=== PATIENT | female | born 1955 | race Caucasian/White ===

== ENCOUNTER → 2017-11-04 | Outpatient (CLI) | payer OTHER ==
[~2017-11-04] MED LIST: ALBU6.7H INH; ALLE24TA PO; ASPI81TA23 PO; CALC1TAB87 PO; CEPH500C3 PO; CYAN1TAB24 PO; ESTR2TAB PO; FEXO1TAB97 PO; LEVO50TA4 PO; LORT5TAB PO; MULT1TAB46 PO; SYMB160A INH; SYNT25TA PO
--- NOTE | 2017-11-04 14:38 | RADRPT ---
EXAM DATE/TIME: 11/04/2017 13:03 [place] COMPARISON: No previous studies available for comparison. INDICATIONS : Pre op for oopherectomy. MEDICAL HISTORY : None. SURGICAL HISTORY : Hysterectomy. ENCOUNTER: Initial ACUITY: 1 day PAIN SCORE: 0/10 LOCATION: Bilateral chest FINDINGS: PA and lateral views of the chest demonstrate the lungs to be symmetrically aerated without evidence of mass, infiltrate or effusion. The cardiomediastinal contours are unremarkable. Osseous structure s are intact. CONCLUSION: No acute disease. Kt Chicas MD FACR on November 04, 2017 at 14:35 Board Certified Radiologist. This report was verified electronically.
--- NOTE | 2017-11-04 17:19 | EKG ---
Date Performed: 11/04/2017 Time Performed: 12:21:43 PTAGE: 62 years EKG: Sinus rhythm NORMAL ECG PREVIOUS TRACING : 08/10/2007 11.23 Since the previous tracing, no significant change noted DOCTOR: Ermias Whittington Interpretating Date/Time 11/04/2017 17:17:53
== END ==
LOC: CPRE 12:05
PROVIDERS: ATTEND Obstetrics & Gynecology
DX: Z01.810 Encounter for preprocedural cardiovascular examination (principal); Z01.811 Encounter for preprocedural respiratory examination; Z01.812 Encounter for preprocedural laboratory examination; Z01.818 Encounter for other preprocedural examination; N83.202 Unspecified ovarian cyst, left side
CPT/HCPCS: 71046; 93005

== ENCOUNTER 2017-11-16 09:49 | Observation (INO) | payer OTHER ==
[~2017-11-16] VITALS: Ht 154.9 cm; Wt 66.9 kg
[~2017-11-16 09:49] MED LIST changes: -ALLE24TA PO; -CEPH500C3 PO; -LORT5TAB PO; -SYNT25TA PO
[2017-11-16] MEDS ORDERED: INSULIN HUMAN REGULAR 1,000 UNITS/10 ML VIAL SQ PRN (10:45)
[2017-11-16] MEDS ORDERED: CHLORHEXIDINE GLUCONATE 2 % 1 PACK (2 CLOTHS) TOPICAL PRN (10:45)
[2017-11-16] MEDS ORDERED: LACTATED RINGER'S 1000 ML IV PRN (10:45)
[2017-11-16] MEDS ORDERED: METOPROLOL TARTRATE 25 MG TAB PO PRN (10:45)
[2017-11-16] MEDS ORDERED: POVIDONE IODINE 5% (ANTISEPSIS KIT) 4 APPLICATIONS EACH NARE PRN (10:45)
[2017-11-16] MEDS ORDERED: SODIUM CHLORID 0.9% 500 ML IV PRN (10:45)
[2017-11-16] MEDS ORDERED: ONDANSETRON ODT 4 MG TAB ONE (10:58)
[2017-11-16] MEDS ORDERED: APREPITANT 40 MG CAP ONE (11:00)
[2017-11-16] MEDS ORDERED: ACETAMINOPHEN 1000 MG/100 ML 100 ML IV ONE (11:56)
[2017-11-16] MEDS ORDERED: BUPIVACAINE LIPOSOME PF 1.3% 20 ML VIAL ONE (11:56)
[2017-11-16] MEDS ORDERED: DEXMEDETOMIDINE HCL 200 MCG/2 ML VIAL ONE (11:56)
[2017-11-16] MEDS ORDERED: PROPOFOL 500 MG/50 ML INJ 50 ML ONE ×4 (11:57→14:43)
[2017-11-16] MEDS ORDERED: DEXAMETHASONE SOD PHOS 4 MG/ML VIAL IV ONE (12:00)
[2017-11-16] MEDS ORDERED: ROCURONIUM INJ 50 MG/5 ML SYRINGE IV PUSH ONE (12:00)
[2017-11-16] MEDS ORDERED: hydrALAZINE HCL 20 MG/ML VIAL IV ONE (12:00)
[2017-11-16] MEDS ORDERED: SODIUM CHLORIDE 0.9% 10 ML VIAL IV ONE (12:00)
[2017-11-16] MEDS ORDERED: LIDOCAINE HCL 1% PF 5 ML SYRINGE OTHER ONE (12:00)
[2017-11-16] MEDS ORDERED: LABETALOL HCL 100 MG/20 ML VIAL IV ONE (12:00)
[2017-11-16] MEDS ORDERED: LACTATED RINGER'S 1000 ML INJ 1,000 ML IV ONE (12:00)
[2017-11-16] MEDS ORDERED: PROPOFOL 200 MG/20 ML AMP IV ONE (12:00)
[2017-11-16 12:04] LABS: BICARBONATE 29.3 MEQ/L (21.0-32.0); CALCIUM 8.8 MG/DL (8.5-10.1); CREATININE 0.56 MG/DL (0.50-1.00)
[2017-11-16] MEDS ORDERED: METHYLENE BLUE 10 MG/ML VIAL IV ONE (15:05)
[2017-11-16] MEDS ORDERED: MIDAZOLAM HCL 2 MG/2 ML VIAL ONE (15:48)
[2017-11-16] MEDS ORDERED: *morphine SULFATE 4 MG/ML PERIprocedure ONLY ONE ×2 (15:56→16:21)
[2017-11-16] MEDS ORDERED: DO NOT ADM ANY ANTICOAGULANT DRUGS PRN (16:00)
[2017-11-16 18:10] VITALS: BP 117/61; PULSE 70; RESP 20; TEMP 96.9; O2SAT 98
[2017-11-16] MEDS ORDERED: ACETAMINOPHEN/HYDROcodone 325 MG/10 MG TAB PO PRN (18:45)
[2017-11-16] MEDS ORDERED: SODIUM CHLORIDE FLUSH PRN IV FLUSH (18:45)
[2017-11-16] MEDS ORDERED: ACETAMINOPHEN/HYDROcodone 325 MG/5 MG TAB PO PRN (18:45)
[2017-11-16] MEDS ORDERED: MORPHINE SULFATE 4 MG/ML INJ IV PRN (18:45)
[2017-11-16] MEDS ORDERED: ZOLPIDEM TARTRATE 5 MG TAB PO PRN (18:45)
[2017-11-16] MEDS ORDERED: PROMETHAZINE HCL 25 MG TAB PO PRN (18:45)
[2017-11-16] MEDS ORDERED: PROMETHAZINE HCL 25 MG SUPP RECTAL PRN (18:45)
[2017-11-16] MEDS ORDERED: LACTATED RINGER'S 1000 ML INJ 1,000 ML IV SCH (18:45)
[2017-11-16] MEDS ORDERED: IBUPROFEN 400 MG TAB PO PRN (18:45)
[2017-11-16 20:37] VITALS: BP 131/62; PULSE 76; RESP 18; TEMP 97.6
[2017-11-16] MEDS ORDERED: SODIUM CHLORIDE FLUSH BID IV FLUSH SCH (21:00)
[2017-11-16] MEDS: DOCUSATE SODIUM 50 MG/SENNA 8.6 MG TAB PO SCH (21:24)
[2017-11-17] VITALS: BP 111/56; PULSE 81; RESP 18; TEMP 98
[2017-11-17 04:32] VITALS: BP 121/51; PULSE 79; RESP 17; TEMP 98.3
[2017-11-17 08:00] VITALS: BP 145/62; PULSE 72; RESP 16; TEMP 98.6; O2SAT 98
--- NOTE | 2017-11-17 08:14 | HHI.DCPOC ---
Discharge Care Plan Diagnosis: (1) Breast carcinoma (2) Ovarian cystic mass (3) H/O hysterectomy for benign disease Report Symptoms to Your Doctor -Temperature above 100.5 degrees -Redness, of incision or excessive or foul smelling drainage -Unusual pain or calf pain -Increased vaginal bleeding -Painful or difficulty urinating -Feelings of extreme sadness or anxiety after 2 weeks Goals to Promote Your Health * To prevent worsening of your condition and complications * To maintain your health at the optimal level Directions to Meet Your Goals Take your medications as prescribed Follow your dietary instruction Follow activity as directed Ensure plenty of rest for recovery Drink fluids for hydration Keep your appointments as scheduled Take your immunizations and boosters as scheduled If your symptoms worsen call your PCP, if no PCP go to Urgent Care Center or Emergency Room Smoking is Dangerous to Your Health. Avoid second hand smoke Call the 24-hour crisis hotline for domestic abuse at Mara Souza MD November 17, 2017 08:14
--- NOTE | 2017-11-17 08:18 | HHI.PR ---
Subjective Remarks Doing well, pain is well controlled, eating well. Objective Vital Signs Vital Signs Date Time Temp Pulse Resp B/P (MAP) Pulse Ox O2 Delivery O2 Flow Rate FiO2 11/17/17 04:32 98.3 79 17 121/51 (74) 11/17/17 00:00 98.0 81 18 111/56 (74) 11/16/17 20:37 97.6 76 18 131/62 (85) 11/16/17 18:10 96.9 70 20 117/61 (79) 98 11/16/17 17:14 97.9 71 20 133/67 (89) 100 Room Air 11/16/17 17:00 97.4 70 17 127/66 (86) 99 Room Air 11/16/17 16:45 70 19 130/74 (92) 99 Room Air 11/16/17 16:30 69 13 127/65 (85) 98 Room Air 11/16/17 16:15 70 13 129/64 (85) 98 Room Air 11/16/17 16:10 Room Air 11/16/17 16:00 69 13 133/67 (89) 100 Nasal Cannula 2 11/16/17 15:45 70 13 128/62 (84) 100 Nasal Cannula 2 11/16/17 15:37 97.4 71 24 139/59 (85) 100 Nasal Cannula 2 11/16/17 11:05 97.9 67 20 183/74 (110) 100 I/O 11/16/17 11/16/17 11/16/17 11/17/17 11/17/17 11/17/17 07:00 15:00 23:00 07:00 15:00 23:00 Intake Total 1550 ml Output Total 1050 ml 900 ml Balance 500 ml -900 ml Intake Oral 250 ml IV Total 200 ml Other 1100 ml Output Urine Total 900 ml 900 ml Estimated Blood Loss 150 ml Result Diagram: 11/16/17 1110 Objective Remarks Chest is clear, regular rate and rhythm. Abdomen is soft and non-distended. Incision is clean and dry. Ext no CCE. A/P Assessment and Plan Post Op Day 1 S/P laparoscopic LSO and massive MATTHIEU. Doing well Home today and return to office in two weeks. Mara Souza MD November 17, 2017 08:18
[2017-11-17] MEDS: DOCUSATE SODIUM 50 MG/SENNA 8.6 MG TAB PO SCH (09:19)
--- NOTE | 2017-11-18 07:59 | MP ---
cc: Mara Souza MD DATE OF OPERATION: 11/16/2017 PREOPERATIVE DIAGNOSIS: Left ovarian mass in a postmenopausal female. POSTOPERATIVE DIAGNOSIS: Left ovarian mass in a postmenopausal female, severe pelvic adhesions, retroperitoneal fibrosis. PROCEDURE PERFORMED: Laparoscopic exam with extensive lysis of adhesions, left salpingo-oophorectomy, ureterolysis and cystoscopy. ANESTHESIA: General endotracheal intubation. SURGEON: Mara Souza MD FINDINGS: On exam, she had a large incision from the umbilicus to the symphysis pubis that was fairly well healed. The laparoscopic exam revealed massive adhesions of bowel and omentum to the anterior abdominal wall from her previous surgery and massive adhesions around the left ovary, extending along the entire left pelvic side wall. The left ovary was normal and small and the mass that was seen was probably due to the massive adhesions. The left ureter was seen and taken down, but because of the extensive dissection in that area, I did do a cystoscopy to assure left ureteral patency. The right ovary was absent. The upper abdomen was normal. COMPLICATIONS: None. COUNTS: The counts were correct. ESTIMATED BLOOD LOSS: 75 mL. FLUIDS: Crystalloids. DISPOSITION: The patient tolerated the procedure well and went to the recovery room in good condition. DESCRIPTION OF THE PROCEDURE: The patient was taken to the operating room, identified by name band and verbally given under general anesthetic, and prepped and draped in the supine position for a laparoscopic exam. The patient previously had a hysterectomy and right salpingo-oophorectomy and was found to have a left ovarian mass, which because of her size and complex nature, we decided to remove it. Because of the large incision from the umbilicus to the symphysis pubis, we went 4 fingerbreadths above the umbilicus for our initial trocar site. A small incision was made in this area and under direct vision, the abdomen was entered with a 5 mm trocar without difficulty and a pneumoperitoneum was created with 3 liters of CO2. There were massive adhesions anteriorly. These needed to be taken down. There was quite a bit of bowel involved and we needed to use scissors instead of the Harmonic scalpel because of the proximity of the bowel to the anterior abdominal wall. This took a good bit of time to take these adhesions down and restore normal anatomy. On the left side, there was a small portion of ovary visible. The rest was encased in massive adhesions and the ovary was stuck to the left pelvic sidewall. We tried to identify the infundibulopelvic ligament; however, this was very difficult because of the adhesive disease, we started inferiorly on the ovary and it became clear that the adhesions around the ovary were very thick. We took these down as best possible, but it became evident that we needed to examine the ureter and take the ovary off the pelvic sidewall once we identified the ureter and pulled it away. The ureterolysis took quite a bit of time because there was quite a bit of retroperitoneal fibrosis. The ureter was seen peristalsing and we dissected up almost to the pelvic brim. Once we had accomplished this, we took the infundibulopelvic ligament with the Harmonic scalpel and removed the ovary. We put a 10 mm port in the left lower quadrant trocar site. We had previously put two 5 mm trocars inferolateral to the umbilicus for visualization and for instrumentation. Once we changed it to a 10 mm port, we put an Endo Catch bag in this area and remove the ovary in toto with no complications. At this point, we irrigated a large amount, inspected the ureter. However, because of the extensive dissection in this area, I wanted to make sure that we did not damage that ureter. We repaired the fascia on the 10 mm port and released the air after the laparoscope was removed under direct vision and repaired the skin with a 4-0 Monocryl in a subcuticular manner. The patient was then placed in dorsal lithotomy position and prepared for cystoscopy. The Kaur catheter was removed. We put 100 mL of saline into the bladder and the patient was given 10 mL of methylene blue. We observed both ureteral orifices and both were patent. At this point, we removed the cystoscope and the patient was then taken to the recovery room in satisfactory condition. Because of the extensive surgical procedure, I kept her in the ER and wanted to know if she needed to stay overnight which she eventually did. She tolerated the procedure well and went to the recovery room in good condition. R. Felice Souza MD RJV/VEGA , 07:35 AM , 07:59 AM
== END 2017-11-17 10:15 | disposition home or self-care (01) ==
LOC: HSDC 09:49 → H1EA 18:34 → HSDC 19:00 → H1EA 19:08 → HSDC 19:08
PROVIDERS: ADMIT Obstetrics & Gynecology; ATTEND Obstetrics & Gynecology
DX: D27.1 Benign neoplasm of left ovary (principal); N83.8 Other noninflammatory disorders of ovary, fallopian tube and broad ligament; N73.6 Female pelvic peritoneal adhesions (postinfective); N13.5 Crossing vessel and stricture of ureter without hydronephrosis; C50.919 Malignant neoplasm of unspecified site of unspecified female breast; Z90.710 Acquired absence of both cervix and uterus
CPT/HCPCS: 00840; 52000; 58661; 64488; 80048; 86850; 86900; 86901; 88307; C9290; G0378; J0131; J0360; J1100; J2250; J2270; J3010; J7120; 88305; J8501